=== PATIENT | male | born 1960 | race Hispanic/Latino ===

== ENCOUNTER 2024-01-26 12:07 | Emergency (ER) | payer OTHER ==
[~2024-01-26] VITALS: Ht 167.6 cm; Wt 88.5 kg
[2024-01-26] MEDS: FLUORESCEIN SODIUM 1 STRIP STRIP OP SCH (15:42)
[2024-01-26] MEDS: TETRACAINE HCL 0.5% 4 ML OPHTH SOLN OP SCH (15:42)
[2024-01-26] MEDS: IBUPROFEN 800 MG TAB PO ONE (15:42)
[2024-01-26 16:03] VITALS: BP 149/88; PULSE 62; RESP 18; O2SAT 97
[2024-01-26] MEDS ORDERED: ERYT1OIN7 OP (16:05)
[2024-01-26] MEDS ORDERED: IBUP-2077 PO (16:05)
[2024-01-26] MEDS: ERYTHROMYCIN BASE 0.5% OPHTH OINT 1 GM TUBE OU ONE (16:28)
== END 2024-01-26 16:27 | disposition home or self-care (01) ==
LOC: EDH 12:07
DX: S00.211A Abrasion of right eyelid and periocular area, initial encounter (principal); X58.XXXA Exposure to other specified factors, initial encounter; Y93.89 Activity, other specified; Y92.89 Other specified places as the place of occurrence of the external cause; Y99.8 Other external cause status